=== PATIENT | male | born 1980 | race Caucasian/White ===

== ENCOUNTER 2017-01-16 19:51 | Emergency (ER) | payer MEDICAID, MEDICARE ==
[~2017-01-16] VITALS: Ht 188 cm; Wt 81.6 kg
[~2017-01-16 19:51] MED LIST: AZIT-21 PO; BENZ200C25 PO; ENLP5T PO; HYDR1CAP3 PO; LISI10TA2; NAPR-243 PO; PRM5C60 TP; RNT150T PO
--- NOTE | 2017-01-16 21:24 | ED EENT ---
History of Present Illness General Chief Complaint: Dental Problems/Pain Stated Complaint: DENTAL PAIN Nursing Triage Note: DENTAL PAIN Source: patient Exam Limitations: no limitations History of Present Illness Time seen by provider: 21:24 Initial Comments 36-year-old male patient presents to the emergency department with complaints of left lower dental pain. Onset this a.m. Patient denies contacting his PCP today or contacting the dentist office at [facility]. Denies taking anything for pain. Timing/Duration: abrupt Location: dental Prearrival Treatment: no prearrival treatment Modifying Factors: Worse With Other (worse with chewing) Allergies and Home Medications Allergies Coded Allergies: divalproex sodium (Verified Allergy, Unknown, 02/16/16) morphine (Verified Adverse Reaction, Mild, RESP DIFFICULTIES, 07/24/12) Home Medications Amoxicillin 500 Mg Capsule, 500 MG PO TID, #21 Ref 0 Prescribed by: SILVER VALDEZ on 01/16/172134 Naproxen 500 Mg Tablet, 500 MG PO BID PRN for pain, #20 Ref 0 Prescribed by: SILVER VALDEZ on 01/16/172134 Review of Systems Constitutional: No chills, No fever, No malaise Eyes: No Symptoms Reported Ears: No Symptoms Reported Nose: no symptoms reported Mouth: see HPI, pain, denies swelling Throat: denies pain, denies swelling, denies hoarse, denies aphonia, denies muffled, denies painful swallowing, denies difficulty with fluids Respiratory: no symptoms reported Cardiovascular: no symptoms reported Gastrointestinal: no symptoms reported Skin: no symptoms reported Neurological: Denies Headache All Other Systems Reviewed Negative Unless Noted: Yes (Negative excepted noted.) Past Xrinaop-Vlbznr-Myumvh Hx Patient Social History Alcohol Use: Denies Use Recreational Drug Use: No Smoking Status: Current Everyday Smoker Type Used: Cigarettes 2nd Hand Smoke Exposure: Yes Recent Foreign Travel: No Contact w/Someone Who Travel: No Recent Infectious Disease Expo: No Recent Hopitalizations: No Immunizations Up To Date Tetanus Booster (TDap): Unknown Seasonal Allergies Seasonal Allergies: No Surgeries History of Surgeries: No Respiratory History of Respiratory Disorde: No Cardiovascular History of Cardiac Disorders: Yes (HTN, NO MEDS) Cardiac Disorders: Hypertension Neurological History of Neurological Disord: No Reproductive System Hx Reproductive Disorders: No Genitourinary History of Genitourinary Disor: No Gastrointestinal History of Gastrointestinal Di: No Musculoskeletal History of Musculoskeletal Dis: No Endocrine History of Endocrine Disorders: No HEENT History of HEENT Disorders: No Cancer History of Cancer: No Psychosocial History of Psychiatric Problem: Yes (BORDERLINE BIPOLAR) Behavioral Health Disorders: ADD/ADHD, Anxiety, Bipolar Integumentary History of Skin or Integumenta: No Reviewed Nursing Assessment Reviewed/Agree w Nursing PMH: Yes Family Medical History Significant Family History: No Pertinent Family Hx Physical Exam Vital Signs Vital Sign - Last 12Hours 01/16/17 20:26 Temp 98.0 Pulse 71 Resp 18 B/P (MAP) 186/96 Pulse Ox 100 O2 Delivery Room Air General Appearance: WD/WN, no apparent distress Eyes: bilateral eye normal inspection, bilateral eye PERRL, bilateral eye EOMI Ears: bilateral ear auricle normal Nose: normal inspection Mouth/Throat: pharynx normal, dental tenderness (left lower), No excessive drooling, No mandibular swelling, No maxillary swelling, No trismus, No uvula swelling, No voice changes, other (multiple dental caries noted of the lower teeth. Upper teeth absent from previous extractions per patient.) Neck: non-tender, full range of motion, supple, normal inspection Cardiovascular: regular rate, rhythm, no murmur Respiratory: lungs clear, normal breath sounds, no respiratory distress, no accessory muscle use Neurologic/Psychiatric: alert, normal mood/affect, oriented x 3 Skin: normal color, warm/dry Progress/Results/Core Measures Results/Orders My Orders Orders - SILVER VALDEZ Lidocaine 2% Viscous 15 Ml (Xylocaine Vi (01/16/17 21:30) Benzocaine Extension Tube (Hurricaine Ex (01/16/17 21:30) Tramadol Tablet (Ultram Tablet) (01/16/17 21:30) Rx-Amoxicillin Capsule (Rx-Polymox Capsu (01/16/17 21:29) Vital Signs/I&O Vital Sign - Last 12Hours 01/16/17 20:26 Temp 98.0 Pulse 71 Resp 18 B/P (MAP) 186/96 Pulse Ox 100 O2 Delivery Room Air Blood Pressure Mean: 126 Departure Communication (Admissions) Progress Notes Patient seen and evaluated. Plan for dsch to home. Impression Impression: Primary Impression: Dental caries Disposition: 01 HOME, SELF-CARE Condition: Improved Departure-Patient Inst. Decision time for Depature: 21:34 Referrals: NO,LOCAL PHYSICIAN (PCP/Family) Primary Care Physician Patient Instructions: Dental Pain (DC) Add. Discharge Instructions: All discharge instructions reviewed with patient and/or family. Voiced understanding. Medications as instructed. Tylenol Extra Strength over-the- counter as directed for pain. Ice pack or heating pad as needed. Soft diet. Follow-up with the dentist of your choice for recheck as an outpatient, call for appointment time or morning. Return to the emergency department for worsened symptoms or any other concerns. Scripts Naproxen (Naprosyn) 500 Mg Tablet 500 MG PO BID Y for pain, #20 TAB 0 Refills Prov: SILVER VALDEZ 01/16/17 Amoxicillin (Amoxicillin) 500 Mg Capsule 500 MG PO TID, #21 CAP 0 Refills Prov: SILVER VALDEZ 01/16/17 SILVER VALDEZ Jan 16, 2017 21:24
[2017-01-16] MEDS ORDERED: RX-AMOXICILLIN 500 MG CAP #3 PPK PO STA (21:29)
[2017-01-16] MEDS ORDERED: LIDOCAINE 2% VISCOUS 15 ML UDC PO ONE (21:30)
[2017-01-16] MEDS ORDERED: HURRICAINE EXT TUBE (BENZOCAINE) XX ONE (21:30)
[2017-01-16] MEDS ORDERED: AMOX500C2 PO (21:35)
[2017-01-16] MEDS ORDERED: NAPR500T PO (21:35)
[2017-01-16 21:50] VITALS: BP 168/92
== END 2017-01-16 21:51 | disposition home or self-care (01) ==
LOC: EDUNIT# 19:51 → ER 19:54
DX: K02.9 Dental caries, unspecified (principal); I10 Essential (primary) hypertension; F90.9 Attention-deficit hyperactivity disorder, unspecified type; F41.9 Anxiety disorder, unspecified; F31.9 Bipolar disorder, unspecified; F17.210 Nicotine dependence, cigarettes, uncomplicated
CPT/HCPCS: 99283

== ENCOUNTER 2017-02-20 13:29 | Emergency (ER) | payer MEDICARE ==
[~2017-02-20] VITALS: Ht 188 cm; Wt 81.6 kg
[~2017-02-20 13:29] MED LIST changes: +AMOX500C2 PO; +NAPR500T PO
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
[2017-02-20] MEDS ORDERED: KETOROLAC 30 MG/ML VIAL IVP ONE (15:00)
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
[2017-02-20 16:11] VITALS: BP 118/82
== END 2017-02-20 16:11 | disposition home or self-care (01) ==
LOC: EDUNIT# 13:29 → ER 13:33
DX: S50.02XA Contusion of left elbow, initial encounter (principal); I10 Essential (primary) hypertension; F90.9 Attention-deficit hyperactivity disorder, unspecified type; F41.9 Anxiety disorder, unspecified; F31.9 Bipolar disorder, unspecified; F17.210 Nicotine dependence, cigarettes, uncomplicated; V18.4XXA Pedal cycle driver injured in noncollision transport accident in traffic accident, initial encounter
CPT/HCPCS: 73080; 73130; 96374; 99284